=== PATIENT | male | born 1940 | race Caucasian/White ===

== ENCOUNTER 2017-06-24 08:00 | Outpatient (CLI) | payer MEDICARE | END 2017-06-24 23:59 | LOC: LAB.R 08:00 | PROVIDERS: ATTEND Internal Medicine | DX: R19.7 Diarrhea, unspecified (principal) | CPT/HCPCS: 81599; 83630; 87045; 87046; 87177; 87209; 87329; 87493 ==

== ENCOUNTER 2018-05-21 17:39 | Emergency (ER) | payer MEDICARE, OTHER ==
[2018-05-21] MEDS ORDERED: BUPIVACAINE 0.5% PF 10 ML VIAL SUBQ STA (20:22)
--- NOTE | 2018-05-21 20:28 | ED Physician Documentation ---
PD HPI UPPER EXT INJURY - Stated complaint Stated Complaint: L INDEX FINGER LAC - Chief complaint Chief Complaint: Laceration - History obtained from History obtained from: Patient - History of Present Illness Location: Left, Finger (index) Type of injury: Laceration Where injury occurred: Home Timing - onset: Today Timing - duration: Minutes Timing - details: Abrupt onset, Still present Improved by: Rest, Immobilization Worsened by: Moving, Palpating Associated symptoms: No: Weakness, Numbness, Tingling, Swelling, Discolored Contributing factors: No: Anticoagulated Similar symptoms before: Diagnosis (laceration) Recently seen: Not recently seen - Additonal information Additional information: 78-year-old male was using a angle saw the jumped and cut the top of his left index finger. He also has a laceration over the pad of the index finger. PD PAST MEDICAL HISTORY - Present Medications Home Medications: Ambulatory Orders Medication Instructions Recorded Confirmed FLUoxetine [PROzac] 20 mg PO DAILY 05/21/18 05/21/18 RX: Lisinopril 20 mg PO 05/21/18 RX: Simvastatin 20 mg PO 05/21/18 05/21/18 RX: hydroCHLOROthiazide 25 mg PO 05/21/18 [Hydrochlorothiazide] - Allergies Allergies/Adverse Reactions: Allergies Allergy/AdvReac Type Severity Reaction Status Date / Time shellfish derived Allergy Anaphylaxis Verified 05/21/18 17:52 PD ED PE NORMAL - Vitals Vital signs reviewed: Yes (normal ) - General General: Alert and oriented X 3, No acute distress, Well developed/nourished - HEENT HEENT: Atraumatic, PERRL, EOMI - Neck Neck: Supple, no meningeal sign, No bony TTP - Respiratory Respiratory: No respiratory distress - Derm Derm: Normal color, Warm and dry, No rash - Extremities Extremities: Other (There is a 4.5cm laceration to the dorsal surface of the left index finger radially and in axial demention. there is not involvement of the tendon. Over the palmar surface of the index over the pad of the finger is a macerated 3.5cm laceration that does not penetrate to the bone. There is not injury to the nail. ) - Neuro Neuro: Alert and oriented X 3, tax intern 2-12 intact, No motor deficit, No sensory deficit, Normal speech Eye Opening: Spontaneous Motor: Obeys Commands Verbal: Oriented GCS Score: 15 - Psych Psych: Normal mood, Normal affect Results - Vitals Vitals: Vital Signs - 24 hr 05/21/18 05/21/18 17:49 21:47 Temperature 36 C L Heart Rate 77 78 Respiratory 18 18 Rate Blood Pressure 94/68 130/76 O2 Saturation 95 100 Oxygen O2 Source Room air Procedures - Laceration (location) left index Length in cm: 8 Wound type: Irregular, Flap, Clean Neurovascular status: Sensory intact, Motor intact, Vascular intact Tendon involvement: Tendon intact Anesthesia: Marcaine 0.5%, OTH (digital block) Wound Preparation: Hibiclens, Irrigated copiously NS, Wound explored, To the base, Multiple flaps aligned Skin layer closure: Nylon, Interrupted, Size #-0 - enter number (4-0 and 5-0) Other: Patient tolerated well, No complications, Neurovascular intact, Dressing applied, Tetanus UTD PD MEDICAL DECISION MAKING - ED course Complexity details: considered differential, d/w patient, d/w family ED course: 78-year-old male with a deep laceration to the dorsal surface of the left index finger and over the palmar surface of the tip of the finger with some macerated tissue. Multiple flaps are aligned after extensive cleaning. The patient will need suture removal in 10-14 days. Departure - Departure Disposition: 01 Home, Self Care Clinical Impression: Finger laceration Qualifiers: Encounter type: initial encounter Finger: index finger Damage to nail status: without damage Foreign body presence: without foreign body Laterality: left Qualified Code(s): S61.211A - Laceration without foreign body of left index finger without damage to nail, initial encounter Instructions: ED Laceration Hand Follow-Up: Heidi Gee MD [Primary Care Provider] - Comments: Sutures should be removed in 10-14 days. Discharge Date/Time: 05/21/18 21:49
[2018-05-21 21:48] VITALS: BP 130/76
== END 2018-05-21 21:49 | disposition home or self-care (01) ==
LOC: ED 17:39
DX: S61.211A Laceration without foreign body of left index finger without damage to nail, initial encounter (principal); W29.8XXA Contact with other powered hand tools and household machinery, initial encounter; Y93.89 Activity, other specified; Y92.009 Unspecified place in unspecified non-institutional (private) residence as the place of occurrence of the external cause
CPT/HCPCS: 12044; 99282; 99283

== ENCOUNTER 2020-11-21 15:15 | Outpatient (CLI) | payer MEDICARE, OTHER ==
--- NOTE | 2020-11-22 09:19 | MRI Report ---
PROCEDURE: Knee RT W/O INDICATIONS: RIGHT KNEE PAIN TECHNIQUE: Noncontrast sagittal PD fast spin echo and T2 fast spin echo with fat saturation, sagittal 3-D gradie nt sequence with fat saturation; coronal T1 spin echo and PD fast spin echo with fat saturation, and axial PD fast spin echo with fat saturation through the knee. COMPARISON: None. FINDINGS: Image quality: Excellent. Menisci: Medial meniscus demonstrates linear oblique high signal intensity within its body, demonstra ting inferior articular surface extension, indicating oblique tearing. Linear oblique high signal int ensity traverses the anterior horn, body, and posterior horn lateral meniscus, demonstrating inferior articular surface extension, indicating oblique tearing. There is truncation of the free edge of the posterior horn lateral meniscus, indicating radial tearing. Cruciate ligaments: The anterior and posterior cruciate ligaments appear intact. Medial structures: The medial collateral ligament appears intact. Visualized portions of the pes ans erinus tendons appear normal. No abnormal bursal fluid. Lateral structures: The lateral collateral ligament demonstrates moderate T2 signal elevation at the femoral origin. The long and short heads of the biceps femoris tendon appear intact. The popliteus tendon appears normal. Iliotibial band appears normal. Anterior structures: The quadriceps and patellar tendons appear intact. Patellar alignment is monty l. No femoral trochlear dysplasia or ventral trochlear prominence. Mild edema in the superolateral a spect of the infrapatellar fat pad. Bones and cartilage: No bone marrow contusions or fractures. Intraosseous ganglia within the lateral tibial plateau posteriorly. Mild tricompartment periarticular osteophyte formation. Mild articular c artilage loss diffusely overlies the weightbearing aspects of the medial femoral condyle and medial t ibial plateau. Severe articular cartilage loss overlies the lateral patellar apex and lateral patella r facet, as well as the lateral femoral trochlea. Joint space: There is physiologic knee joint fluid. Trace Hood?s cyst. There is a [address] at the posterior lateral aspect of the knee joint adjacent to the popliteus. Normal appearing syno vial plicae are incidentally noted. IMPRESSION: 1. Tricompartmental osteoarthritis with associated articular cartilage loss. 2. Medial and lateral meniscal tearing. 3. Partial-thickness lateral collateral ligament tear. 4. Ganglion cyst adjacent to the popliteus. 5. Findings consistent with lateral patellofemoral friction syndrome in the appropriate clinical sett ing. Reviewed by: Donya Dallas MD on 11/22/2020 9:17 AM PDT Approved by: Donya Dallas MD on 11/22/2020 9:17 AM PDT Station ID: [id number]
== END 2020-11-21 15:16 | disposition home or self-care (01) ==
LOC: DI 15:15
PROVIDERS: ATTEND Internal Medicine
DX: M17.11 Unilateral primary osteoarthritis, right knee (principal); S83.241A Other tear of medial meniscus, current injury, right knee, initial encounter; S83.281A Other tear of lateral meniscus, current injury, right knee, initial encounter; S83.411A Sprain of medial collateral ligament of right knee, initial encounter; M67.461 Ganglion, right knee

== ENCOUNTER 2021-07-31 08:00 | Outpatient (CLI) | payer MEDICARE, OTHER ==
[2021-07-31 16:08] LABS: BASOPHILS # (AUTO) 0.1 10^3/uL (0.0-0.1); BASOPHILS % (AUTO) 0.8 %; EOSINOPHILS # (AUTO) 0.1 10^3/uL (0.0-0.7); EOSINOPHILS % (AUTO) 1.9 %; HCT - HEMATOCRIT 44.1 % (42.0-52.0); HGB - HEMOGLOBIN 14.8 g/dL (14.0-18.0); LYMPHOCYTES # (AUTO) 1.4 10^3/uL (1.5-3.5); LYMPHOCYTES % (AUTO) 22.9 %; MEAN CORPUSCULAR HEMOGLOBIN 32.2 pg (27.0-31.0); MEAN CORPUSCULAR HGB CONC 33.6 g/dL (32.0-36.0); MEAN CORPUSCULAR VOLUME 96.1 fL (80.0-94.0); MEAN PLATELET VOLUME 8.9 fL (7.4-11.4); MONOCYTES # (AUTO) 0.7 10^3/uL (0.0-1.0); NEUTROPHILS % (AUTO) 63.1 %; PLT - PLATELET COUNT 218 10^3/uL (130-450); RED BLOOD COUNT 4.59 10^6/uL (4.70-6.10); RED CELL DISTRIBUTION WIDTH 12.4 % (12.0-15.0); WHITE BLOOD COUNT 6.3 x10^3/uL (4.8-10.8)
[2021-07-31 16:25] LABS: ALBUMIN 4.4 g/dL (3.2-5.5); ALBUMIN/GLOBULIN RATIO 1.9 (1.0-2.2); ALKALINE PHOSPHATASE 45 IU/L (42-121); ALT ALANINE AMINOTRANSFERASE 18 IU/L (10-60); AST ASPARTATE AMINOTRANSFERASE 21 IU/L (10-42); BILIRUBIN,TOTAL 1.1 mg/dL (0.2-1.0); BUN - BLOOD UREA NITROGEN 25 mg/dL (6-20); CARBON DIOXIDE - CO2 25 mmol/L (21-32); CHLORIDE 97 mmol/L (101-111); CHOL/HDL RATIO 2.6 (<5.0); CHOLESTEROL 206 mg/dL; CK- CREATINE KINASE 91 IU/L (22-269); CREATININE 0.8 mg/dL (0.6-1.2); GFR - MDRD 93 (>89); GLUCOSE 109 mg/dL (70-100); HDL CHOLESTEROL 80 mg/dL; LDL CHOLESTEROL,CALCULATED 109 mg/dL; LDL/HDL RATIO 1.4 (<3.6); POTASSIUM 4.5 mmol/L (3.5-5.0); SODIUM 135 mmol/L (135-145); TOTAL PROTEIN 6.7 g/dL (6.7-8.2); TRIGLYCERIDES 87 mg/dL; VLDL CHOLESTEROL 17 mg/dL
[2021-07-31 16:31] LABS: PSA TOTAL 0.35 ng/mL (0.000-2.000)
[2021-07-31 16:36] LABS: THYROID STIMULATING HORMONE 1.79 uIU/mL (0.34-5.60)
[2021-07-31 16:42] LABS: FERRITIN 268.5 ng/mL (23.9-336.2)
[2021-07-31 20:51] LABS: ESTIMATED AVERAGE GLUCOSE 117 mg/dL (70-100); HEMOGLOBIN A1c% 5.7 % (4.27-6.07)
== END 2021-07-31 23:59 | disposition home or self-care (01) ==
LOC: LAB.R 08:00
PROVIDERS: ATTEND Internal Medicine
DX: Z00.00 Encounter for general adult medical examination without abnormal findings (principal); F32.A Depression, unspecified; K21.9 Gastro-esophageal reflux disease without esophagitis; E78.5 Hyperlipidemia, unspecified; I10 Essential (primary) hypertension; R73.01 Impaired fasting glucose; M19.90 Unspecified osteoarthritis, unspecified site; G25.81 Restless legs syndrome; Z79.899 Other long term (current) drug therapy; E61.1 Iron deficiency; N40.0 Benign prostatic hyperplasia without lower urinary tract symptoms
CPT/HCPCS: 80053; 80061; 82550; 82728; 83036; 83721; 84153; 84443; 85025